=== PATIENT | female | born 2000 | race Asian ===

== ENCOUNTER 2019-01-20 16:46 | Emergency (ER) | payer OTHER, MEDICAID ==
[~2019-01-20] VITALS: Ht 132.1 cm; Wt 131.5 kg
[2019-01-20 17:28] VITALS: Ht 132.1 cm; Wt 131.5 kg
[2019-01-20 19:30] VITALS: BP 128/72
== END 2019-01-20 19:27 | disposition home or self-care (01) ==
LOC: ED 16:46
DX: M72.2 Plantar fascial fibromatosis (principal); Z98.890 Other specified postprocedural states